=== PATIENT | male | born 1985 | race Caucasian/White ===

== ENCOUNTER 2018-09-22 02:17 | Emergency (ER) | payer SELFPAY ==
[~2018-09-22] VITALS: Ht 175.3 cm; Wt 64.5 kg
[2018-09-22] MEDS ORDERED: SERT100T12 PO (02:49)
[2018-09-22] MEDS ORDERED: BICT1TAB PO (02:49)
[2018-09-22 03:56] VITALS: BP 132/63
[2018-09-22] MEDS ORDERED: DiphenhydrAMINE HCL 25 MG CAPSULE PO ONE (04:15)
[2018-09-22] MEDS ORDERED: MethylPREDNISolone SOD SUCC 125 MG/2 ML VIAL IM ONE (04:15)
== END 2018-09-22 04:54 | disposition home or self-care (01) ==
LOC: EMS 02:20
DX: L50.9 Urticaria, unspecified (principal); F17.210 Nicotine dependence, cigarettes, uncomplicated; Z88.2 Allergy status to sulfonamides; Z88.8 Allergy status to other drugs, medicaments and biological substances
CPT/HCPCS: 96372; 99283; J2930

== ENCOUNTER 2021-01-09 19:40 | Emergency (ER) | payer BC, OTHER ==
[~2021-01-09] VITALS: Ht 175.3 cm; Wt 88.2 kg
[~2021-01-09 19:40] MED LIST: BICT1TAB PO; SERT-162 PO
[2021-01-09] MEDS ORDERED: LIDOCAINE 1% 10 ML VIAL ID ONE (20:15)
[2021-01-09 21:32] VITALS: BP 121/74
== END 2021-01-09 21:32 | disposition home or self-care (01) ==
LOC: EMS 19:44
DX: S01.81XA Laceration without foreign body of other part of head, initial encounter (principal); F17.210 Nicotine dependence, cigarettes, uncomplicated; Z88.8 Allergy status to other drugs, medicaments and biological substances; Z88.1 Allergy status to other antibiotic agents; W19.XXXA Unspecified fall, initial encounter; Y93.89 Activity, other specified; Y92.89 Other specified places as the place of occurrence of the external cause; Y99.8 Other external cause status
CPT/HCPCS: 12013; 70450; 72125; 99285; J3490